=== PATIENT | female | born 1965 | race American Indian/Alaskan Native ===

== ENCOUNTER 2019-03-08 13:16 | Emergency (ER) | payer MEDICAID ==
[2019-03-08 13:44] VITALS: BP 134/81
[2019-03-08] MEDS ORDERED: TORADOL IM ONE (15:09)
[2019-03-08] MEDS ORDERED: DELTASONE PO ONE (15:10)
--- NOTE | 2019-03-08 15:18 | Emergency Department Report ---
ED Rash HPI - HPI Chief Complaint: Skin Rash Stated Complaint: LFT SPINE NUMB/NERVE PAIN Time Seen by Provider: 03/08/19 15:01 Duration: 1 week Location: Chest, Back Rash Symptoms: Yes Itching, Yes Blistering, Yes Malaise, No Facial Swelling, No Tongue/Oral Swelling, No Breathing Difficulties, No Choking Sensation, No Wheezing/Dyspnea, No Peeling, No Fever, No Lightheaded, No Myalgias Severity: mild Other History: Mrs. Moura is a 53-year-old female 1 week of left flank pain just under her breast and radiates around her back. She has blister which occurred recently. Did have chickenpox as a child. ED Review of Systems ROS: Stated complaint: LFT SPINE NUMB/NERVE PAIN Other details as noted in HPI Constitutional: malaise. denies: fever Respiratory: cough. denies: shortness of breath Gastrointestinal: denies: abdominal pain Skin: rash, lesions ED Past Medical Hx - Past Medical History Previous Medical History?: Yes Additional medical history: Sciatica, spinal stenosis, epilepsy - Surgical History Past Surgical History?: No - Social History Smoking Status: Never Smoker Substance Use Type: None - Medications Home Medications: Home Medications Medication Instructions Recorded Confirmed Last Taken Type Acyclovir [Zovirax Tab] 800 mg PO Q3H 7 Days #35 tablet 03/08/19 Unknown Rx Rash Exam - Exam General: Vital signs noted. No distress. Alert and acting appropriately. HEENT: No Periorbital Edema, No Conjuctival Injection, No Chemosis, No Perioral Edema, No Tongue Edema, No Uvular Edema, No Compromised Airway, No Drooling Lungs: Yes Good Air Exchange (Normal Breath Sounds), No Wheezes, No Ronchi, No Stridor, No Cough, No Labored Respirations, No Retractions, No Use of Accessory Muscles, No Other Abnormal Lung Sounds Heart: Yes Regular, No Murmur Skin: Yes Maculopapular Rash (left lower rib cage) Other: Positive: Abdomen Normal, Neurologic Normal, Musculoskeletal Normal ED Course Vital Signs 03/08/19 13:41 Temperature 98.4 F Pulse Rate 111 H Respiratory 18 Rate Blood Pressure 134/81 ED Medical Decision Making - Medical Decision Making Herpes zoster, shingles: Prescription for prednisone and acyclovir provided. Avoided opioid medication with history of previous drug dependence. Critical care attestation.: If time is entered above; I have spent that time in minutes in the direct care of this critically ill patient, excluding procedure time. ED Disposition Clinical Impression: Shingles Disposition: DC- TO HOME OR SELFCARE Is pt being admited?: No Does the pt Need Aspirin: No Condition: Stable Instructions: Herpes Zoster (ED) Prescriptions: Acyclovir [Zovirax Tab] 800 mg PO Q3H 7 Days #35 tablet Referrals: SOFYA STONE MD [Primary Care Provider] - 3-5 Days
== END 2019-03-08 15:36 | disposition home or self-care (01) ==
LOC: ED 13:16
DX: B02.9 Zoster without complications (principal)
CPT/HCPCS: 96372; 99282; J1885; J7512

== ENCOUNTER 2019-04-30 08:55 | Emergency (ER) | payer MEDICAID ==
[2019-04-30 09:03] VITALS: BP 149/98
[2019-04-30] MEDS ORDERED: DELTASONE PO ONE (09:25)
[2019-04-30] MEDS ORDERED: PROVENTIL IH ONE (09:26)
--- NOTE | 2019-04-30 09:38 | Emergency Department Report ---
ED Asthma HPI - General Chief Complaint: Dyspnea/Respdistress Stated Complaint: AZEEM Time Seen by Provider: 04/30/19 09:09 Source: patient Mode of arrival: Ambulatory Limitations: No Limitations - History of Present Illness Initial Comments: 53-year-old -[place] female complains of shortness of breathing. Patient reports she was recently diagnosed with asthma. Patient admits to runny nose but no nasal congestion. She does admit to a cough. Denies any wheezing. Patient reports she's been using her inhaler but has not used her long acting inhaler. Patient reports that she has been exposed to black mold about a year ago. Patient is currently on amlodipine and Benzapril 10 mg over 20 mg, Abilify 15 mg and Zoloft 100 mg. She has no known drug allergies. Onset/Timin -: days(s) Severity: mild Treatments Prior to Arrival: inhaled bronchodilator - Related Data Current Asthma Therapy: inhaled bronchodilator Home Medications Medication Instructions Recorded Confirmed Last Taken Abilify 15 mg PO QDAY 04/30/19 04/30/19 04/30/19 09:37 Amlodipine Besylate/Benazepril 10 mg PO QDAY 04/30/19 04/30/19 04/30/19 [Lotrel 10-20 mg] Fluticasone [Flonase] 70 mcg INHALATION QDAY 04/30/19 04/30/19 04/30/19 09:32 Sertraline [Zoloft] 100 mg PO QDAY 04/30/19 04/30/19 04/30/19 09:35 Previous Rx's Medication Instructions Recorded Last Taken Type Acyclovir [Zovirax Tab] 800 mg PO Q3H 7 Days #35 tablet 03/08/19 Unknown Rx predniSONE [Deltasone] 20 mg PO QDAY #4 tab 04/30/19 Unknown Rx Allergies Allergy/AdvReac Type Severity Reaction Status Date / Time No Known Allergies Allergy Unverified 04/30/19 08:59 ED Review of Systems ROS: Stated complaint: AZEEM Other details as noted in HPI Comment: All other systems reviewed and negative ENT: congestion Respiratory: cough, shortness of breath Endocrine: no symptoms reported Gastrointestinal: denies: abdominal pain, nausea, diarrhea Genitourinary: denies: urgency, dysuria, discharge ED Past Medical Hx - Past Medical History Previous Medical History?: Yes Hx Asthma: Yes Additional medical history: Sciatica, spinal stenosis, epilepsy - Surgical History Past Surgical History?: No - Social History Smoking Status: Former Smoker - Medications Home Medications: Home Medications Medication Instructions Recorded Confirmed Last Taken Type Acyclovir [Zovirax Tab] 800 mg PO Q3H 7 Days #35 tablet 03/08/19 04/30/19 Unknown Rx Abilify 15 mg PO QDAY 04/30/19 04/30/19 04/30/19 09:37 History Amlodipine Besylate/Benazepril 10 mg PO QDAY 04/30/19 04/30/19 04/30/19 History [Lotrel 10-20 mg] Fluticasone [Flonase] 70 mcg INHALATION QDAY 04/30/19 04/30/19 04/30/19 09:32 History Sertraline [Zoloft] 100 mg PO QDAY 04/30/19 04/30/19 04/30/19 09:35 History predniSONE [Deltasone] 20 mg PO QDAY #4 tab 04/30/19 Unknown Rx ED Physical Exam - General Limitations: No Limitations General appearance: alert, in no apparent distress - Head Head exam: Present: atraumatic, normocephalic - Eye Eye exam: Present: normal appearance - ENT ENT exam: Present: mucous membranes moist - Neck Neck exam: Present: normal inspection - Respiratory Respiratory exam: Present: normal lung sounds bilaterally. Absent: respiratory distress - Cardiovascular Cardiovascular Exam: Present: regular rate, normal rhythm. Absent: systolic murmur, diastolic murmur, rubs, gallop - GI/Abdominal GI/Abdominal exam: Present: soft, normal bowel sounds - Extremities Exam Extremities exam: Present: normal inspection - Back Exam Back exam: Present: normal inspection - Neurological Exam Neurological exam: Present: alert, oriented X3 - Psychiatric Psychiatric exam: Present: normal affect, normal mood - Skin Skin exam: Present: warm, dry, intact, normal color. Absent: rash ED Course Vital Signs 04/30/19 04/30/19 04/30/19 09:00 09:50 09:52 Temperature 98.3 F Pulse Rate 92 H Pulse Rate [ 92 H 94 H Anterior Bilateral] Respiratory 21 Rate Respiratory 17 17 Rate [Anterior Bilateral] Blood Pressure 149/98 O2 Sat by Pulse 100 Oximetry ED Medical Decision Making - Radiology Data Radiology results: report reviewed Patient: ARCHANA JEAN MR#: [id number] : 1965 Acct:[id number] Age/Sex: 53 / F ADM Date: 04/30/19 Loc: ED Attending Dr: Ordering Physician: BERNARDO THOMSON Date of Service: 04/30/19 Procedure(s): XR chest routine 2V Accession Number(s): [id number] cc: BERNARDO THOMSON Fluoro Time In Minutes: ROUTINE CHEST, TWO VIEWS: HISTORY: Short of breath. The trachea, heart, mediastinal contour, lung zavaleta and bony thorax are unremarkable. IMPRESSION: Unremarkable chest x-ray. Transcribed By: TTR Dictated By: KASI WATKINS JR, MD Electronically Authenticated By: KASI WATKINS JR, MD Signed Date/Time: 04/30/19 103 DD/ 1039 TD/TT: 04/30/19 1039 - Medical Decision Making 23 year old female comes in for difficulty breathing complaining of shortness of breath. Patient will be given albuterol with normal saline treatment. Patient be given his own 15 mg chest x-ray has been ordered. Chest x-ray is unremarkable. Patient is to continue with her albuterol inhaler as well as use her long acting steroid inhaler. Patient should follow-up with a toilet attendant as well as her primary care provider. Critical care attestation.: If time is entered above; I have spent that time in minutes in the direct care of this critically ill patient, excluding procedure time. ED Disposition Clinical Impression: Shortness of breath Asthma Qualifiers: Asthma severity: mild Asthma persistence: intermittent Asthma complication type: unspecified Qualified Code(s): J45.20 - Mild intermittent asthma, uncomplicated Disposition: DC-01 TO HOME OR SELFCARE Is pt being admited?: No Does the pt Need Aspirin: No Condition: Stable Instructions: Asthma (ED) Additional Instructions: Please use your long-acting inhaler as prescribed twice a day. Usually her rescue inhaler which is albuterol as needed for shortness of breathing and cough. Follow up with her primary care provider as well as a toilet attendant I have listed their information below for your convenience. Take prednisone as prescribed. Prescriptions: predniSONE [Deltasone] 20 mg PO QDAY #4 tab Referrals: JULIAN KHOURY MD [Primary Care Provider] - 3-5 Days
--- NOTE | 2019-04-30 10:44 | XRay Report ---
ROUTINE CHEST, TWO VIEWS: HISTORY: Short of breath. The trachea, heart, mediastinal contour, lung zavaleta and bony thorax are unremarkable. IMPRESSION: Unremarkable chest x-ray.
== END 2019-04-30 10:59 | disposition home or self-care (01) ==
LOC: ED 08:55
DX: J45.909 Unspecified asthma, uncomplicated (principal); G40.909 Epilepsy, unspecified, not intractable, without status epilepticus; Z87.891 Personal history of nicotine dependence
CPT/HCPCS: 71046; 94640; 99283; J7512

== ENCOUNTER 2019-11-16 08:10 | Inpatient (IN) | payer MEDICAID ==
[2019-11-16] MEDS ORDERED: ASPIRIN 325 MG TAB PO ONE (08:19)
--- NOTE | 2019-11-16 08:46 | XRay Report ---
CHEST 1 VIEW INDICATION / CLINICAL INFORMATION: Chest Pain. COMPARISON: 04/30/2019 FINDINGS: SUPPORT DEVICES: None. HEART / MEDIASTINUM: No significant abnormality. LUNGS / PLEURA: No significant pulmonary or pleural abnormality.. No pneumothorax. ADDITIONAL FINDINGS: No significant additional findings. IMPRESSION: 1. No acute findings. Signer Name: Mitch Brown MD Signed: 11/16/2019 8:42 AM Workstation Name: [id number]
[2019-11-16 08:56] LABS: Basophils # (Auto) 0.1 K/mm3 (0.0-0.1); Basophils % (Auto) 0.6 % (0.0-1.8); Eosinophils # (Auto) 0.4 K/mm3 (0.0-0.4); Eosinophils % (Auto) 4.3 % (0.0-4.3); Hematocrit 36.8 % (30.3-42.9); Hemoglobin 12.1 gm/dl (10.1-14.3); Lymphocytes # (Auto) 2.9 K/mm3 (1.2-5.4); Mean Corpuscular HGB Conc 33 % (30-34); Mean Corpuscular Volume 91 fl (79-97); Monocytes # (Auto) 0.7 K/mm3 (0.0-0.8); Monocytes % (Auto) 7.9 % (0.0-7.3); Platelet Count 293 K/mm3 (140-440); Red Blood Count 4.07 M/mm3 (3.65-5.03); Red Cell Distribution Width 15.6 % (13.2-15.2)
[2019-11-16 09:11] LABS: BUN/Creatinine Ratio 18; Blood Urea Nitrogen 14 mg/dL (7-17)
[2019-11-16 09:12] LABS: Hemolysis Index 10
--- NOTE | 2019-11-16 09:29 | Emergency Department Report ---
ED Chest Pain HPI - General Chief Complaint: Chest Pain Stated Complaint: PRESSURE ON CHEST Time Seen by Provider: 11/16/19 09:26 Source: patient Mode of arrival: Ambulatory Limitations: No Limitations - History of Present Illness Initial Comments: 33-year-old female states that she's had "chest congestion for the last 2 months. She states that she is a regular patient of [facility] [place]. She states that she has had an echocardiogram before to evaluate the presence of what I believe is a pre-existing bundle branch block. She is otherwise a poor hist orian. She does not think that she has had a stress test. She's never been admitted to the hospital for evaluation of any chest related symptoms. In addition to the "congestion", she complains of chest pain. She says the chest pain is inframammary nonradiating chest pain described as a squeezing on both sides sometimes involving the back. Sometimes it changes with her physician. Since being worse when she lays down. She does not correlate this with exertion. She states he's had this since Tuesday intermittently lasting sometimes longer than 10 minutes. MD Complaint: chest pain -: Gradual Onset: during rest Pain Location: other (anterior chest) Severity: moderate Quality: pressure Consistency: intermittent Improves With: nothing Worsens With: nothing re: dyspnea ("congestion") Treatments Prior to Arrival: other (MDI inhaler) - Related Data On Oral Contraceptives: No Home Medications Medication Instructions Recorded Confirmed Last Taken Abilify 15 mg PO QDAY 04/30/19 04/30/19 04/30/19 09:37 Amlodipine Besylate/Benazepril 10 mg PO QDAY 04/30/19 04/30/19 04/30/19 [Lotrel 10-20 mg] Fluticasone [Flonase] 70 mcg INHALATION QDAY 04/30/19 04/30/19 04/30/19 09:32 Sertraline [Zoloft] 100 mg PO QDAY 04/30/19 04/30/19 04/30/19 09:35 Previous Rx's Medication Instructions Recorded Last Taken Type Acyclovir [Zovirax Tab] 800 mg PO Q3H 7 Days #35 tablet 03/08/19 Unknown Rx predniSONE [Deltasone] 20 mg PO QDAY #4 tab 04/30/19 Unknown Rx Allergies Allergy/AdvReac Type Severity Reaction Status Date / Time No Known Allergies Allergy Verified 11/16/19 09:27 Heart Score - HEART Score History: Moderately suspicious EKG: Non-specific Age: 45-65 Risk factors: 1-2 risk factors Troponin: < normal limit HEART Score: 4 - Critical Actions Critical Actions: 4-6 pts:12-16.6% risk of adverse cardiac event. Should be admitted ED Review of Systems ROS: Stated complaint: PRESSURE ON CHEST Other details as noted in HPI Constitutional: other (dizziness). denies: chills, fever Eyes: denies: eye pain, eye discharge, vision change ENT: denies: ear pain, throat pain Respiratory: shortness of breath, wheezing. denies: cough Cardiovascular: chest pain. denies: palpitations Endocrine: no symptoms reported Gastrointestinal: denies: abdominal pain, nausea, diarrhea Genitourinary: denies: urgency, dysuria, discharge Musculoskeletal: denies: back pain, joint swelling, arthralgia Skin: denies: rash, lesions Neurological: denies: headache, weakness, paresthesias Psychiatric: denies: anxiety, depression Hematological/Lymphatic: denies: easy bleeding, easy bruising ED Past Medical Hx - Past Medical History Previous Medical History?: Yes Hx Hypertension: Yes Hx Psychiatric Treatment: Yes (I presume schizophrenia as patient is on Abilify) Hx Asthma: Yes Additional medical history: Sciatica, spinal stenosis, epilepsy - Surgical History Past Surgical History?: No - Social History Smoking Status: Former Smoker Substance Use Type: None - Medications Home Medications: Home Medications Medication Instructions Recorded Confirmed Last Taken Type Acyclovir [Zovirax Tab] 800 mg PO Q3H 7 Days #35 tablet 03/08/19 04/30/19 Unknown Rx Abilify 15 mg PO QDAY 04/30/19 04/30/19 04/30/19 09:37 History Amlodipine Besylate/Benazepril 10 mg PO QDAY 04/30/19 04/30/19 04/30/19 History [Lotrel 10-20 mg] Fluticasone [Flonase] 70 mcg INHALATION QDAY 04/30/19 04/30/19 04/30/19 09:32 History Sertraline [Zoloft] 100 mg PO QDAY 04/30/19 04/30/19 04/30/19 09:35 History predniSONE [Deltasone] 20 mg PO QDAY #4 tab 04/30/19 Unknown Rx ED Physical Exam - General Limitations: No Limitations General appearance: obese - Head Head exam: Present: atraumatic, normocephalic - Eye Eye exam: Present: normal appearance. Absent: scleral icterus - ENT ENT exam: Present: mucous membranes moist - Neck Neck exam: Present: normal inspection - Respiratory Respiratory exam: Present: normal lung sounds bilaterally. Absent: respiratory distress - Cardiovascular Cardiovascular Exam: Present: regular rate, normal rhythm. Absent: systolic murmur, diastolic murmur, rubs, gallop - GI/Abdominal GI/Abdominal exam: Present: soft, normal bowel sounds. Absent: distended, tenderness, guarding, rebound - Extremities Exam Extremities exam: Present: normal inspection, normal capillary refill. Absent: pedal edema, joint swelling, calf tenderness - Back Exam Back exam: Present: normal inspection - Neurological Exam Neurological exam: Present: alert, oriented X3, CN II-XII intact. Absent: motor sensory deficit - Psychiatric Psychiatric exam: Present: normal affect, normal mood - Skin Skin exam: Present: warm, dry, intact, normal color. Absent: rash ED Course Vital Signs 11/16/19 08:55 Temperature 98.4 F Pulse Rate 92 H Respiratory 25 H Rate Blood Pressure 141/89 [Left] O2 Sat by Pulse 97 Oximetry - Reevaluation(s) Reevaluation #1: Will admit to the hospitalist service for further care and evaluation. 11/16/19 09:53 PARI score - Pari Score Age > 65: (0) No Aspirin use within the Past 7 Days: (0) No 3 or more CAD Risk Factors: (0) No 2 or more Angina events in past 24 hrs: (0) No Known CAD with more than 50% Stenosis: (0) No Elevated Cardiac Markers: (0) No ST Deviation Greater than 0.5mm: (0) No PARI Score: 0 ED Medical Decision Making - Lab Data Result diagrams: 11/16/19 08:40 11/16/19 08:40 Laboratory Results - last 24 hr 11/16/19 11/16/19 08:40 08:40 WBC 9.1 RBC 4.07 Hgb 12.1 Hct 36.8 MCV 91 MCH 30 MCHC 33 RDW 15.6 H Plt Count 293 Lymph % (Auto) 32.0 Kings % (Auto) 7.9 H Eos % (Auto) 4.3 Baso % (Auto) 0.6 Lymph # 2.9 Kings # 0.7 Eos # 0.4 Baso # 0.1 Seg Neutrophils % 55.2 Seg Neutrophils # 5.0 Sodium 141 Potassium 3.8 Chloride 105.3 Carbon Dioxide 23 Anion Gap 17 BUN 14 Creatinine 0.8 Estimated GFR > 60 BUN/Creatinine Ratio 18 Glucose 118 H Calcium 9.0 Troponin T < 0.010 - EKG Data -: EKG Interpreted by Me EKG shows normal: sinus rhythm Rate: normal (99 borderline tachycardia) - EKG Data Interpretation: nonspecific ST-T wave lyla, other (bifascicular block (RBBB and LAFB)) - Radiology Data Radiology results: report reviewed (no acute finding), image reviewed Critical care attestation.: If time is entered above; I have spent that time in minutes in the direct care of this critically ill patient, excluding procedure time. ED Disposition Clinical Impression: Bifascicular block Chest pain Qualifiers: Chest pain type: unspecified Qualified Code(s): R07.9 - Chest pain, unspecified Disposition: -09 OP ADMIT IP TO THIS HOSP Is pt being admited?: Yes Does the pt Need Aspirin: Yes Condition: Stable Instructions: Chest Pain (ED) Time of Disposition: 09:54
[2019-11-16] MEDS ORDERED: ONDANSETRON 4 MG/2 ML INJ IV PRN (10:59)
[2019-11-16] MEDS ORDERED: ACETAMINOPHEN 325 MG TAB PO PRN (10:59)
[2019-11-16] MEDS ORDERED: amLODIPine 10 MG TAB PO ONE (12:00)
[2019-11-16] MEDS ORDERED: SERTRALINE 50 MG TAB PO ONE (12:08)
[2019-11-16] MEDS ORDERED: amLODIPine 10 MG TAB ONE (12:30)
[2019-11-16] MEDS ORDERED: SERTRALINE 50 MG TAB ONE (12:30)
--- NOTE | 2019-11-16 12:36 | History and Physical Report ---
History of Present Illness Date of examination: 11/16/19 Date of admission: 11/16/19 09:57 Chief complaint: Shortness of breath for 5-6 days Chest pain and congestion for 2 months History of present illness: Zeny Zavala is a 53-year-old female with history of asthma, depression and hypertension and lower back pain presents to the ED with complaints of shortness of breath for the past 5-6 days and also chest pressure and congestion for the past 2 months. Patient is a poor historian. She complains of chest pressure radiating to the back and neck, it's nonexertional, denies any dizziness, sweating, nausea or vomiting or loss of consciousness. Complains of exertional shortness of breath for the past 5-6 days. She denies any fever/chills/nausea or abdominal pain or heartburn. She denies any weight loss or dysuria. Patient is physically active, and denies any exertional chest pain. An EKG was done which showed a right bundle branch block and left anterior fascicular block. Patient is being admitted for further evaluation of her atypical chest pain Past History Past Medical History: hypertension, other (asthma and depression) Past Surgical History: No surgical history Social history: no significant social history Family history: no significant family history Medications and Allergies Allergies Allergy/AdvReac Type Severity Reaction Status Date / Time No Known Allergies Allergy Verified 11/16/19 09:27 Home Medications Medication Instructions Recorded Confirmed Last Taken Type Acyclovir [Zovirax Tab] 800 mg PO Q3H 7 Days #35 tablet 03/08/19 04/30/19 Unknown Rx Abilify 15 mg PO QDAY 04/30/19 04/30/19 04/30/19 09:37 History Amlodipine Besylate/Benazepril 10 mg PO QDAY 04/30/19 04/30/19 04/30/19 History [Lotrel 10-20 mg] Fluticasone [Flonase] 70 mcg INHALATION QDAY 04/30/19 04/30/19 04/30/19 09:32 History Sertraline [Zoloft] 100 mg PO QDAY 04/30/19 04/30/19 04/30/19 09:35 History predniSONE [Deltasone] 20 mg PO QDAY #4 tab 04/30/19 Unknown Rx Active Meds: Active Medications Acetaminophen (Tylenol) 650 mg PO Q4H PRN PRN Reason: Pain MILD(1-3)/Fever >100.5/LANDRUM Albuterol/Ipratropium (Duoneb *Not For Prn Use*) 1 ampul IH QIDRT [facility] Arformoterol Tartrate (Brovana Nebu) 15 mcg IH Q12HRT [facility] Budesonide (Pulmicort) 0.5 mg IH Q12HRT [facility] Famotidine (Pepcid) 20 mg PO BID [place] Sodium Chloride (Nacl 0.45% 1000 Ml) 1,000 mls @ 75 mls/hr IV DIRECT [place] Ondansetron HCl (Zofran) 4 mg IV Q8H PRN PRN Reason: Nausea And Vomiting Oxycodone/Acetaminophen (Percocet 5/325) 1 tab PO Q6H PRN PRN Reason: Pain, Moderate (4-6) Prednisone (Deltasone) 40 mg PO DAILY [place] Sodium Chloride (Sodium Chloride Flush Syringe 10 Ml) 10 ml IV BID [facility] Sodium Chloride (Sodium Chloride Flush Syringe 10 Ml) 10 ml IV PRN PRN PRN Reason: LINE FLUSH Review of Systems All systems: negative (13 point review of systems is unremarkable except as stated above in the history of present illness) Exam - Constitutional Vitals: Temp Pulse Resp BP Pulse Ox 98.4 F 92 H 25 H 141/89 97 11/16/19 08:55 11/16/19 08:55 11/16/19 08:55 11/16/19 08:55 11/16/19 08:55 General appearance: Present: no acute distress, well-nourished, obese - EENT Eyes: Present: PERRL, EOM intact ENT: hearing intact, clear oral mucosa - Neck Neck: Present: supple, normal ROM - Respiratory Respiratory effort: normal Respiratory: bilateral: rhonchi (bilateral expiratory rhonchi) - Cardiovascular Rhythm: regular Heart Sounds: Present: S1 & S2 - Extremities Extremities: No edema Peripheral Pulses: within normal limits - Abdominal General gastrointestinal: Present: soft, non-tender. Absent: hepatomegaly, splenomegaly Female genitourinary: Present: deferred - Rectal Rectal Exam: deferred - Integumentary Integumentary: Present: clear - Musculoskeletal Musculoskeletal: strength equal bilaterally - Psychiatric Psychiatric: appropriate mood/affect - Neurologic Neurologic: CNII-XII intact, no focal deficits Results - Labs CBC & Chem 7: 11/16/19 08:40 11/16/19 08:40 Labs: Abnormal lab results 11/16/19 11/16/19 Range/Units 08:40 08:40 RDW 15.6 H (13.2-15.2) % Dolores % (Auto) 7.9 H (0.0-7.3) % Glucose 118 H (65-100) mg/dL Assessment and Plan - Patient Problems (1) Atypical chest pain Current Visit: Yes Status: Acute Plan to address problem: We will admit the patient to medical floor on observation status Telemetry monitoring First set of troponin is negative Serial troponin levels Check echocardiogram to assess LV function EKG reviewed Cardiology consulted (2) Hypertension Current Visit: Yes Status: Chronic Qualifiers: Hypertension type: essential hypertension Qualified Code(s): I10 - Essential (primary) hypertension Plan to address problem: Continue home medications (3) Depression Current Visit: Yes Status: Chronic Qualifiers: Depression Type: major depressive disorder Major depression episode severity: moderate Plan to address problem: Continue Zoloft (4) Mild persistent chronic asthma without complication Current Visit: Yes Status: Acute Plan to address problem: We will start the patient on neb treatments with DuoNeb solution, Pulmicort and Brovana solutions and oral steroids (5) Bifascicular block Current Visit: Yes Status: Chronic Plan to address problem: EKG reviewed Await cardiology evaluation
[2019-11-16] MEDS: BUDESONIDE 0.5 MG/2 ML NEBU IH SCH ×2 (14:05→19:32)
[2019-11-16] MEDS: IPRATROPIUM/ALBUTEROL SULFATE 3 ML AMPUL.NEB IH SCH ×3 (14:05→22:28)
[2019-11-16] MEDS: predniSONE 20 MG TAB PO SCH (14:45)
[2019-11-16] MEDS: SODIUM CHLORIDE 0.45% 1000 ML 1,000 ML IV SCH (14:46)
--- NOTE | 2019-11-16 14:58 | Consultation ---
History of Present Illness Consult date: 11/16/19 Requesting physician: PONCHO JACINTO Consult reason: chest pain History of present illness: The pt is a 53-year-old female with a past medical history of HTN, asthma, depression, former tobacco use, former heavy ETOH use (sober for 4 years), obesity. She is previously unknown to our practice. She presented with c/o prog ressively worsening SOB, NOEL and wheezing for the past 1 month. Yesterday, she developed chest pain and thus she decided to seek medical attention. She describes her chest pain as an intermittent squeezing pain around her thorax - feels "like a rubber band is wrapped around the ribcage". The pain is aggravated by deep breathing and coughing. She denies any palpitations, n/v, diaphoresis, dizziness or syncope. She denies any known prior cardiac issues. Past History Past Medical History: hypertension, other (asthma and depression) Past Surgical History: No surgical history Social history: no significant social history Family history: no significant family history Medications and Allergies Allergies Allergy/AdvReac Type Severity Reaction Status Date / Time No Known Allergies Allergy Verified 11/16/19 09:27 Home Medications Medication Instructions Recorded Confirmed Last Taken Type Amlodipine Besylate/Benazepril 10 mg PO QDAY 04/30/19 11/16/19 04/30/19 History [Lotrel 10-20 mg] Fluticasone [Flonase] 70 mcg INHALATION QDAY 04/30/19 11/16/19 04/30/19 09:32 History Sertraline [Zoloft] 100 mg PO QDAY 04/30/19 11/16/19 04/30/19 09:35 History Active Meds: Active Medications Acetaminophen (Tylenol) 650 mg PO Q4H PRN PRN Reason: Pain MILD(1-3)/Fever >100.5/LANDRUM Albuterol/Ipratropium (Duoneb *Not For Prn Use*) 1 ampul IH QIDRT [facility] [place] Last Admin: 11/16/19 14:05 Dose: 1 ampul Documented by: Arformoterol Tartrate (Brovana Nebu) 15 mcg IH Q12HRT [facility] [place] Budesonide (Pulmicort) 0.5 mg IH Q12HRT [facility] [place] Last Admin: 11/16/19 14:05 Dose: 0.5 mg Documented by: Famotidine (Pepcid) 20 mg PO BID [facility] [place] Sodium Chloride (Nacl 0.45% 1000 Ml) 1,000 mls @ 75 mls/hr IV DIRECT [facility] [place] Last Admin: 11/16/19 14:46 Dose: 75 mls/hr Documented by: Ondansetron HCl (Zofran) 4 mg IV Q8H PRN PRN Reason: Nausea And Vomiting Oxycodone/Acetaminophen (Percocet 5/325) 1 tab PO Q6H PRN PRN Reason: Pain, Moderate (4-6) Prednisone (Deltasone) 40 mg PO DAILY [facility] [place] Last Admin: 11/16/19 14:45 Dose: 40 mg Documented by: Sodium Chloride (Sodium Chloride Flush Syringe 10 Ml) 10 ml IV BID [facility] [place] Sodium Chloride (Sodium Chloride Flush Syringe 10 Ml) 10 ml IV PRN PRN PRN Reason: LINE FLUSH Review of Systems Constitutional: no weight loss, no weight gain, no fever, no chills, no sweats Ears, nose, mouth and throat: no ear pain, no nose pain, no sinus pressure, no sinus pain Cardiovascular: chest pain, shortness of breath, dyspnea on exertion, high blood pressure, decreased exercise tolerance, no orthopnea, no palpitations, no rapid/irregular heart beat, no edema, no syncope, no lightheadedness, no leg edema Respiratory: cough, shortness of breath, dyspnea on exertion, wheezing, pain on inspiration Gastrointestinal: no abdominal pain, no nausea, no vomiting, no diarrhea, no constipation, no change in bowel habits Genitourinary Female: no pelvic pain, no flank pain, no dysuria, no urinary frequency, no urgency Musculoskeletal: no neck stiffness, no neck pain, no shooting arm pain, no arm numbness/tingling, no low back pain, no shooting leg pain Integumentary: no rash, no pruritis, no redness, no sores, no wounds Neurological: no head injury, no paralysis, no weakness, no parathesias, no numbness, no tingling, no seizures, no syncope Psychiatric: no anxiety Endocrine: no cold intolerance, no heat intolerance Hematologic/Lymphatic: no easy bruising, no easy bleeding Allergic/Immunologic: no urticaria, no wheezing Physical Examination Last Vital Signs Temp 98.1 F 11/16/19 14:02 Pulse 77 11/16/19 14:09 Resp 14 11/16/19 14:09 BP 121/69 11/16/19 14:02 Pulse Ox 97 11/16/19 14:02 General appearance: no acute distress, other (SOB) HEENT: Positive: PERRL, Normocephaly, Mucus Membranes Moist Neck: Positive: neck supple, trachea midline Cardiac: Positive: Reg Rate and Rhythm, S1/S2 Lungs: Positive: Decreased Breath Sounds, Wheezes Neuro: Positive: Grossly Intact Abdomen: Negative: Tender Skin: Negative: Rash Musculoskeletal: No Pain Extremities: Absent: edema Results 11/16/19 08:40 11/16/19 08:40 CBC 11/16/19 Range/Units 08:40 WBC 9.1 (4.5-11.0) K/mm3 RBC 4.07 (3.65-5.03) M/mm3 Hgb 12.1 (10.1-14.3) gm/dl Hct 36.8 (30.3-42.9) % Plt Count 293 (140-440) K/mm3 Lymph # 2.9 (1.2-5.4) K/mm3 Cole # 0.7 (0.0-0.8) K/mm3 Eos # 0.4 (0.0-0.4) K/mm3 Baso # 0.1 (0.0-0.1) K/mm3 Comprehensive Metabolic Panel 11/16/19 Range/Units 08:40 Sodium 141 (137-145) mmol/L Potassium 3.8 (3.6-5.0) mmol/L Chloride 105.3 (98-107) mmol/L Carbon Dioxide 23 (22-30) mmol/L BUN 14 (7-17) mg/dL Creatinine 0.8 (0.7-1.2) mg/dL Glucose 118 H (65-100) mg/dL Calcium 9.0 (8.4-10.2) mg/dL - Imaging and Cardiology Echo: pending EKG: report reviewed, image reviewed EKG interpretations - Telemetry EKG Rhythm: Sinus Rhythm - EKG Sinus rhythms and dysrhythmias: sinus rhythm Assessment and Plan Chest pain appears pleuritic in etiology. ECG with no acute ischemic changes and Dane negative for AMI x 1 set. Obtain echo. Obtain second set of Dane, f/u ECG in AM and plan for lexiscan MPI stress test in AM pending respiratory status will permit. NPO after MN. The patient has been seen in conjunction with Dr. Javier who agrees with the assessment and plan of care. - Patient Problems (1) Chest pain Current Visit: Yes Status: Acute Qualifiers: Chest pain type: unspecified Qualified Code(s): R07.9 - Chest pain, unspecified (2) Asthma exacerbation Current Visit: Yes Status: Acute (3) Hypertension Current Visit: Yes Status: Chronic Qualifiers: Hypertension type: essential hypertension Qualified Code(s): I10 - Essential (primary) hypertension (4) Depression Current Visit: Yes Status: Chronic Qualifiers: Depression Type: major depressive disorder Major depression episode severity: moderate (5) Obesity Current Visit: Yes Status: Chronic (6) RBBB Current Visit: Yes Status: Chronic
[2019-11-16] MEDS: oxyCODONE /ACETAMINOPHEN 5-325MG TAB PO PRN (18:13)
[2019-11-16] MEDS: ARFORMOTEROL 15 MCG/2 ML NEBU IH SCH (19:32)
[2019-11-16] MEDS: FAMOTIDINE 20 MG TAB PO SCH (22:29)
[2019-11-17] MEDS: SODIUM CHLORIDE 0.45% 1000 ML 1,000 ML IV SCH (03:32)
[2019-11-17] MEDS: ARFORMOTEROL 15 MCG/2 ML NEBU IH SCH (07:44)
[2019-11-17] MEDS: BUDESONIDE 0.5 MG/2 ML NEBU IH SCH (07:44)
[2019-11-17] MEDS ORDERED: REGADENOSON 0.4 MG/5 ML INJ IV ONE ×2 (07:58→08:05)
--- NOTE | 2019-11-17 09:38 | Event Note ---
Date: 11/17/19 no ischemic cp. having episodes of left lateral sharp cp at rest that is fleeting vss/morbidly obese chest clear cor rrr abd soft trop neg imp: atypical cp, hx htn. former smoker plan: stress mpi as planned
[2019-11-17 09:54] VITALS: BP 149/93
[2019-11-17] MEDS: oxyCODONE /ACETAMINOPHEN 5-325MG TAB PO PRN (10:33)
[2019-11-17] MEDS ORDERED: oxyCODONE /ACETAMINOPHEN 5-325MG TAB ONE (10:33)
[2019-11-17] MEDS: IPRATROPIUM/ALBUTEROL SULFATE 3 ML AMPUL.NEB IH SCH ×2 (11:07→12:38)
--- NOTE | 2019-11-17 11:38 | Event Note ---
Date: 11/17/19 lexiscan stress. lv ef 70%. no ischemia or necrosis
[2019-11-17] MEDS: predniSONE 20 MG TAB PO SCH (11:42)
[2019-11-17] MEDS: FAMOTIDINE 20 MG TAB PO SCH (11:42)
--- NOTE | 2019-11-17 11:51 | Treadmill Report ---
NUCLEAR CARDIAC IMAGING REPORT INDICATION FOR PROCEDURE: Chest pain. Informed consent was obtained. Vasodilator stress was achieved with the intravenous administration of 0.4 mg of Lexiscan per protocol. Nuclear cardiac imaging was performed following the intravenous administration of technetium-99m Myoview per protocol. Gated SPECT imaging demonstrates a post-stress left ventricular ejection fraction of 70% with normal wall motion. Myocardial perfusion imaging demonstrates no significant cavity change between stress and rest. No significant stress induced perfusion defects are seen. Nuclear cardiac imaging demonstrates grossly normal post-stress left ventricular systolic function with no significant evidence of myocardial ischemia or necrosis. JOB# [id number] ANGELES/NTS
--- NOTE | 2019-11-17 13:20 | Discharge Summary ---
Providers - Providers Date of Admission: 11/16/19 09:57 Date of discharge: 11/17/19 Attending physician: PONCHO JACINTO 11/16/19 10:59 Consult to Physician [CONS] Urgent Comment: Consulting Provider: NATALYA SCHULTE Physician Instructions: Reason For Exam: chest pain and sob Primary care physician: [facility] Hospitalization Reason for admission: Atypical chest pain Condition: Stable Pertinent studies: Echocardiogram Procedures: Nuclear medicine MPI stress test Hospital course: Patient was admitted for atypical chest pain [place] was ruled out with serial troponin levels Cardiology consult was obtained She underwent nuclear medicine stress thallium this morning and it was reported as normal EF 70% Patient denied any chest pain on the day of discharge Patient is medically stable for discharge Follow-up with her primary care physician Disposition: TO HOME OR SELFCARE Time spent for discharge: 34 min - Discharge Diagnoses (1) Atypical chest pain Status: Acute Comment: Resolved (2) Hypertension Status: Chronic Qualifiers: Hypertension type: essential hypertension Qualified Code(s): I10 - Essential (primary) hypertension (3) Depression Status: Chronic Qualifiers: Depression Type: major depressive disorder Major depression episode severity: moderate (4) Mild persistent chronic asthma without complication Status: Acute (5) Bifascicular block Status: Chronic Core Measure Documentation - Palliative Care Palliative Care/ Comfort Measures: Not Applicable - Core Measures Any of the following diagnoses?: none Exam - Constitutional Vitals: Temp Pulse Resp BP Pulse Ox 98.2 F 85 18 149/93 98 11/17/19 04:24 11/17/19 07:35 11/17/19 07:35 11/17/19 09:38 11/17/19 04:24 General appearance: Present: no acute distress - EENT Eyes: Present: PERRL, EOM intact ENT: hearing intact, clear oral mucosa - Neck Neck: Present: supple, normal ROM - Respiratory Respiratory effort: normal Respiratory: bilateral: CTA - Cardiovascular Rhythm: regular Heart Sounds: Present: S1 & S2 - Extremities Extremities: No edema - Abdominal General gastrointestinal: Present: soft, non-tender - Integumentary Integumentary: Present: clear - Musculoskeletal Musculoskeletal: strength equal bilaterally - Psychiatric Psychiatric: appropriate mood/affect, intact judgment & insight - Neurologic Neurologic: no focal deficits Plan Activity: no restrictions Weight Bearing Status: Full Weight Bearing Diet: regular, low fat, low salt Follow up with: PRIMARY CARE, [Primary Care Provider] - 7 Days
[2019-11-17] MEDS ORDERED: IPRATROPIUM 0.02% NEBU 2.5 ML IH SCH (14:00)
[2019-11-17] MEDS ORDERED: LEVALBUTEROL 0.63 MG/3 ML NEBU IH SCH (14:00)
== END 2019-11-17 15:14 | disposition home or self-care (01) | DRG 202 ==
LOC: ED 08:10 → 4A 09:57 → 3A 11:35
PROVIDERS: ADMIT Internal Medicine; ATTEND Internal Medicine
DX: J45.31 Mild persistent asthma with (acute) exacerbation (principal); I45.2 Bifascicular block; Z68.42 Body mass index [BMI] 45.0-49.9, adult; R07.89 Other chest pain; I10 Essential (primary) hypertension; F32.9 Major depressive disorder, single episode, unspecified; E66.9 Obesity, unspecified; I45.10 Unspecified right bundle-branch block; Z79.899 Other long term (current) drug therapy
CPT/HCPCS: 36415; 71045; 78452; 80048; 84484; 85025; 93005; 93010; 93017; 93306; 94640; G0378; A9502; J2405; J2785; J7030; J7512

== ENCOUNTER 2020-10-04 20:12 | Emergency (ER) | payer MEDICAID ==
[2020-10-04 22:55] LABS: Bacteria,Urine 1+ /HPF (Negative); Bilirubin,Urine NEG (Negative); Blood,Urine SM (Negative); Color,Urine Yellow (Yellow); Protein,Urine <15 mg/dL mg/dL (Negative); Urobilinogen,Urine < 2.0 mg/dL (<2.0)
[2020-10-05] MEDS ORDERED: KETOROLAC 30 MG/1 ML INJ IM ONE (00:49)
[2020-10-05] MEDS ORDERED: dexAMETHasone 20 MG/5 ML VIAL IM ONE (00:49)
--- NOTE | 2020-10-05 00:54 | Emergency Department Report ---
ED General Adult HPI - General Chief complaint: Abdominal Pain Stated complaint: SIDE,HIP,THIGH PAIN Time Seen by Provider: 10/05/20 00:45 Source: patient Mode of arrival: Ambulatory Limitations: No Limitations - History of Present Illness Initial comments: The patient was evaluated in the emergency department for symptoms described in the history of present illness. He/she was evaluated in the context of the global COVID-19 pandemic, which necessitated consideration that the patient might be at risk for infection with the virus that causes COVID-19. Institutional protocols and algorithms that pertain to the evaluation of patients at risk for COVID-19 are in a state of rapid change based on information released by regulatory bodies including the CDC and federal and state organizations. These policies and algorithms were followed during the patient's care in the emergency department. Please note that these policies, procedures and recommendations changed on a rapid basis. 54-year-old -[place] female presents to the emergency room complaining of 2-week history of right lower back pain that radiates to her groin area. Patient reports she has chronic history of back pain. Patient reports that the pain is worse with certain movements.. Patient denies any fever chills no nausea no vomiting no recent falls. Onset/Timin -: week(s) Location: back Radiation: abdomen Severity scale (0 -10): 9 Quality: burning, sharp Consistency: intermittent Worsens with: movement Associated Symptoms: denies other symptoms Treatments Prior to Arrival: none - Related Data Home Medications Medication Instructions Recorded Confirmed Last Taken Amlodipine Besylate/Benazepril 10 mg PO QDAY 04/30/19 11/16/19 04/30/19 [Lotrel 10-20 mg] Fluticasone [Flonase] 70 mcg INHALATION QDAY 04/30/19 11/16/19 04/30/19 09:32 Sertraline [Zoloft] 100 mg PO QDAY 04/30/19 11/16/19 04/30/19 09:35 Previous Rx's Medication Instructions Recorded Last Taken Type Diclofenac Sodium 50 mg PO BID PRN #20 tablet. 10/05/20 Unknown Rx Nitrofurantoin [place]/M-Cryst 100 mg PO Q12HR 10 Days #20 capsule 10/05/20 Unknown Rx [Macrobid CAP] Allergies Allergy/AdvReac Type Severity Reaction Status Date / Time No Known Allergies Allergy Verified 11/16/19 09:27 ED Review of Systems ROS: Stated complaint: SIDE,HIP,THIGH PAIN Other details as noted in HPI Comment: All other systems reviewed and negative ED Past Medical Hx - Past Medical History Previous Medical History?: Yes Hx Hypertension: Yes Hx Kidney Stones: Yes Hx Psychiatric Treatment: Yes Hx Asthma: Yes Additional medical history: Sciatica, spinal stenosis, epilepsy. Obesity - Surgical History Past Surgical History?: No - Social History Smoking Status: Former Smoker Substance Use Type: None - Medications Home Medications: Home Medications Medication Instructions Recorded Confirmed Last Taken Type Amlodipine Besylate/Benazepril 10 mg PO QDAY 04/30/19 11/16/19 04/30/19 History [Lotrel 10-20 mg] Fluticasone [Flonase] 70 mcg INHALATION QDAY 04/30/19 11/16/19 04/30/19 09:32 History Sertraline [Zoloft] 100 mg PO QDAY 04/30/19 11/16/19 04/30/19 09:35 History Diclofenac Sodium 50 mg PO BID PRN #20 tablet.dr 10/05/20 Unknown Rx Nitrofurantoin [place]/M-Cryst 100 mg PO Q12HR 10 Days #20 capsule 10/05/20 Unknown Rx [Macrobid CAP] ED Physical Exam - General Limitations: No Limitations General appearance: alert, obese - Head Head exam: Present: atraumatic, normocephalic - Eye Eye exam: Present: normal appearance - ENT ENT exam: Present: mucous membranes moist - Neck Neck exam: Present: normal inspection, full ROM - Respiratory Respiratory exam: Present: normal lung sounds bilaterally. Absent: chest wall tenderness - Cardiovascular Cardiovascular Exam: Present: regular rate - GI/Abdominal GI/Abdominal exam: Present: soft, tenderness (Suprapubic). Absent: distended - Extremities Exam Extremities exam: Present: normal inspection - Back Exam Back exam: Present: normal inspection, full ROM. Absent: rash noted - Expanded Back Exam Expanded Back exam: Sciatic Notch Tenderness: Right, Negative Straight Leg Raising: Right, Left - Neurological Exam Neurological exam: Present: alert, oriented X3, normal gait - Psychiatric Psychiatric exam: Present: normal affect, normal mood - Skin Skin exam: Present: warm, dry, intact, normal color. Absent: rash ED Course Vital Signs 10/04/20 21:21 Temperature 98.8 F Pulse Rate 98 H Respiratory 18 Rate Blood Pressure 137/82 O2 Sat by Pulse 98 Oximetry ED Medical Decision Making - Medical Decision Making 54-year-old -[place] female presents to the emergency room complaining of 2-week history of right lower back pain that radiates to her groin area. Patient reports she has chronic history of back pain. Patient reports that the pain is worse with certain movements.. Patient denies any fever chills no nausea no vomiting no recent falls. Urinalysis is positive for urinary tract infection. Patient also has right sciatica notch tenderness with tenderness to the buttocks with palpation. Patient will be given a Toradol injection prednisone injection and will be discharged home on Macrobid for urinary tract infection as well as diclofenac's 50 mg twice a day for 10 days. Critical care attestation.: If time is entered above; I have spent that time in minutes in the direct care of this critically ill patient, excluding procedure time. ED Disposition Clinical Impression: Urinary tract infection, Pain of back and right lower extremity Disposition: TO HOME OR SELFCARE Is pt being admited?: No Does the pt Need Aspirin: No Condition: Stable Instructions: Abdominal Pain (ED), Urinary Tract Infection, Adult, [id number] Additional Instructions: Complete antibiotics as prescribed pain medication as needed. Be sure to void after intercourse and increase your water intake by 2 to 3 L daily. Follow-up within [facility] chronic urinary tract infections. Prescriptions: Diclofenac Sodium 50 mg PO BID PRN #20 tablet.dr BAE Reason: Pain , Severe (7-10) Nitrofurantoin [place]/M-Cryst [Macrobid CAP] 100 mg PO Q12HR 10 Days #20 capsule Referrals: PRIMARY [facility] [Primary Care Provider] - 3-5 Days [facility] [Provider Group] - 3-5 Days Forms: Work/School Release Form(ED)
[2020-10-05 01:35] VITALS: BP 130/80
== END 2020-10-05 01:33 | disposition home or self-care (01) ==
LOC: ED 20:12
DX: N39.0 Urinary tract infection, site not specified (principal); M54.5 Low back pain; M79.604 Pain in right leg; I10 Essential (primary) hypertension; J45.909 Unspecified asthma, uncomplicated; Z87.891 Personal history of nicotine dependence; Z87.442 Personal history of urinary calculi; Z79.899 Other long term (current) drug therapy
CPT/HCPCS: 81001; 87086; 96372; 99283; J1100; J1885

== ENCOUNTER 2020-10-21 09:55 | Outpatient (CLI) | payer MEDICAID ==
[2020-10-21 10:37] LABS: Basophils # (Auto) 0.1 K/mm3 (0.0-0.1); Basophils % (Auto) 0.6 % (0.0-1.8); Eosinophils # (Auto) 0.4 K/mm3 (0.0-0.4); Eosinophils % (Auto) 3.9 % (0.0-4.3); Hemoglobin 12.1 gm/dl (10.1-14.3); Lymphocytes # (Auto) 3.4 K/mm3 (1.2-5.4); Lymphocytes % (Auto) 32.9 % (13.4-35.0); Mean Corpuscular HGB Conc 35 % (30-34); Mean Corpuscular Volume 90 fl (79-97); Monocytes # (Auto) 0.9 K/mm3 (0.0-0.8); Monocytes % (Auto) 8.8 % (0.0-7.3); Platelet Count 346 K/mm3 (140-440); Red Blood Count 3.91 M/mm3 (3.65-5.03); Red Cell Distribution Width 16.9 % (13.2-15.2)
[2020-10-21 10:50] LABS: % Iron Saturation 10.75 %; Alanine Aminotransferase 43 units/L (7-56); BUN/Creatinine Ratio 18; Blood Urea Nitrogen 14 mg/dL (7-17); Calcium 9.9 mg/dL (8.4-10.2); Chol/HDL Ratio 3.83 %; HDL Cholesterol 56 mg/dL (40-59); Hemolysis Index 5; Iron 36 ug/dL (37-170); LDL Cholesterol,Direct 135 mg/dL (50-130); Total Iron Binding Capacity 335 mcg/dL (250-450)
[2020-10-24 11:59] LABS: Vitamin D, 25-OH, D2 <4 ng/mL
== END 2020-10-21 09:56 | disposition home or self-care (01) ==
LOC: LAB 09:55
PROVIDERS: ATTEND Surgery
DX: E66.01 Morbid (severe) obesity due to excess calories (principal); Z98.84 Bariatric surgery status
CPT/HCPCS: 36415; 80053; 80061; 82306; 82607; 82728; 83036; 83550; 84425; 84443; 85025

== ENCOUNTER 2020-10-27 08:27 | Outpatient (CLI) | payer MEDICAID ==
--- NOTE | 2020-10-27 10:37 | Fluoroscopy Report ---
UPPER GI HISTORY: FUNCTIONAL DYSPEPSIA. TECHNIQUE: Single and double contrast barium technique utilized to evaluate the esophagus, stomach, and duodenal C-loop. FINDINGS: To begin the exam, swallowing was evaluated in the lateral position under direct fluorosco py. Swallowing was normal. No mucosal irregularity, mass, mass effect, or critical stenosis. There were no abnormal tertiary c ontractions as seen with dysmotility. No gastroesophageal reflux. IMPRESSION: Unremarkable exam. Fluoroscopic time: 2.8 minutes Number of fluoroscopic images: 24 Signer Name: Tono Claudio Jr, MD Signed: 10/27/2020 10:32 AM Workstation Name: [id number]
== END 2020-10-27 08:28 | disposition home or self-care (01) ==
LOC: FLUORO 08:27
PROVIDERS: ATTEND Surgery
DX: K30 Functional dyspepsia (principal)
CPT/HCPCS: 74246

== ENCOUNTER 2020-11-03 08:00 | Outpatient (CLI) | payer MEDICAID | END 2020-11-03 12:00 | disposition home or self-care (01) | LOC: SLR 08:00 | PROVIDERS: ATTEND Surgery | DX: G47.33 Obstructive sleep apnea (adult) (pediatric) (principal) | CPT/HCPCS: 95810 ==

== ENCOUNTER 2020-11-10 11:00 | Outpatient (CLI) | payer MEDICAID | END 2020-11-10 11:01 | disposition home or self-care (01) | LOC: SLR 11:00 | PROVIDERS: ATTEND Surgery | DX: G47.33 Obstructive sleep apnea (adult) (pediatric) (principal); R40.0 Somnolence; E66.9 Obesity, unspecified | CPT/HCPCS: 95811 ==

== ENCOUNTER 2020-12-28 22:31 | Emergency (ER) | payer MEDICAID ==
--- NOTE | 2020-12-28 23:09 | Event Note ---
ED Screening Note Date of service: 12/28/20 Time: 23:08 ED Screening Note: Patient presents with complaints of sudden onset of facial/lip swelling with tingling in her throat upon waking today Patient states possible allergic reaction to Metformin, newly diagnosed diabetes and has taken 2 doses Denies shortness of breath Angioedema noted to face This initial assessment/diagnostic orders/clinical plan/treatment(s) is/are subject to change based on patients health status, clinical progression and re- assessment by fellow clinical providers in the ED. Further treatment and workup at subsequent clinical providers discretion. Patient/guardian urged not to elope from the ED as their condition may be serious if not clinically assessed and managed. Initial orders include: Further eval
[2020-12-28] MEDS ORDERED: FAMOTIDINE 20 MG/2 ML INJ IV ONE (23:22)
[2020-12-28] MEDS ORDERED: methylPREDNISolone Sod Succinate 125 MG/2 ML INJ IV ONE (23:23)
[2020-12-28] MEDS ORDERED: CETIRIZINE 10 MG TAB PO ONE (23:23)
--- NOTE | 2020-12-29 00:33 | Emergency Department Report ---
ED Allergic Reaction HPI - General Chief complaint: Allergic Reaction Stated complaint: ALLERGIC REACTION;LIP SWELLING Time Seen by Provider: 12/28/20 23:07 Source: patient Mode of arrival: Ambulatory Limitations: No Limitations - History of Present Illness Initial Comments: Chief complaint: "It must be my Metformin." HPI: This is a 55-year-old female with history of hypertension diabetes mellitus asthma sciatica epilepsy spinal stenosis who presents with 1 month of diffuse itching redness of skin since beginning Metformin. Today she awakened from a nap with lower lip swelling. No previous history of allergic reaction. She denies difficulty with swallowing. Denies shortness of breath. Denies feeling faint. Denies food allergies. MD Complaint: allergic reaction, facial swelling, other (Diffuse rash of arms for the past month) -: Gradual Exposure: medication Symptoms: rash, lip swelling Severity: mild Treatment Prior to Arrival: none Previous Allergy History: none - Related Data Home Medications Medication Instructions Recorded Confirmed Last Taken Amlodipine Besylate/Benazepril 10 mg PO QDAY 04/30/19 11/16/19 04/30/19 [Lotrel 10-20 mg] Fluticasone [Flonase] 70 mcg INHALATION QDAY 04/30/19 11/16/19 04/30/19 09:32 Sertraline [Zoloft] 100 mg PO QDAY 04/30/19 11/16/19 04/30/19 09:35 Previous Rx's Medication Instructions Recorded Last Taken Type Diclofenac Sodium 50 mg PO BID PRN #20 tablet. 10/05/20 Unknown Rx Nitrofurantoin Lucas/M-Cryst 100 mg PO Q12HR 10 Days #20 capsule 10/05/20 Unknown Rx [Macrobid CAP] EPINEPHrine [Epipen] 0.3 mg IJ ONCE PRN #1 auto.injct 12/29/20 Unknown Rx Prednisone [predniSONE 10 mg 10 mg PO .TAPER #1 tab.ds.pk 12/29/20 Unknown Rx (6-Day Pack, 21 Tabs)] amLODIPine 10 mg PO DAILY #90 tab 12/29/20 Unknown Rx diphenhydrAMINE [Benadryl CAP] 25 mg PO TID 4 Days #12 capsule 12/29/20 Unknown Rx Allergies Allergy/AdvReac Type Severity Reaction Status Date / Time No Known Allergies Allergy Verified 11/16/19 09:27 ED Review of Systems ROS: Stated complaint: ALLERGIC REACTION;LIP SWELLING Other details as noted in HPI Comment: All other systems reviewed and negative Constitutional: denies: fever, malaise Respiratory: denies: cough, shortness of breath Cardiovascular: denies: chest pain Skin: rash ED Past Medical Hx - Past Medical History Previous Medical History?: Yes Hx Hypertension: Yes Hx Kidney Stones: Yes Hx Psychiatric Treatment: Yes Hx Asthma: Yes Additional medical history: Sciatica, spinal stenosis, epilepsy. Obesity - Social History Smoking Status: Never Smoker Substance Use Type: None - Medications Home Medications: Home Medications Medication Instructions Recorded Confirmed Last Taken Type Amlodipine Besylate/Benazepril 10 mg PO QDAY 04/30/19 11/16/19 04/30/19 History [Lotrel 10-20 mg] Fluticasone [Flonase] 70 mcg INHALATION QDAY 04/30/19 11/16/19 04/30/19 09:32 History Sertraline [Zoloft] 100 mg PO QDAY 04/30/19 11/16/19 04/30/19 09:35 History Diclofenac Sodium 50 mg PO BID PRN #20 tablet.dr 10/05/20 Unknown Rx Nitrofurantoin Lucas/M-Cryst 100 mg PO Q12HR 10 Days #20 capsule 10/05/20 Unknown Rx [Macrobid CAP] EPINEPHrine [Epipen] 0.3 mg IJ ONCE PRN #1 auto.injct 12/29/20 Unknown Rx Prednisone [predniSONE 10 mg 10 mg PO .TAPER #1 tab.ds.pk 12/29/20 Unknown Rx (6-Day Pack, 21 Tabs)] amLODIPine 10 mg PO DAILY #90 tab 12/29/20 Unknown Rx diphenhydrAMINE [Benadryl CAP] 25 mg PO TID 4 Days #12 capsule 12/29/20 Unknown Rx ED Physical Exam - General Limitations: No Limitations General appearance: alert, in no apparent distress - Head Head exam: Present: atraumatic, normocephalic, other (Redness involving cheeks lower lip swelling normal tongue size normal soft palate) - Eye Eye exam: Present: normal appearance - ENT ENT exam: Present: mucous membranes moist, other (Lower lip swelling normal tongue size normal voice normal soft palate) - Neck Neck exam: Present: normal inspection, full ROM - Respiratory Respiratory exam: Present: normal lung sounds bilaterally. Absent: respiratory distress, wheezes, rales, stridor - Cardiovascular Cardiovascular Exam: Present: regular rate, normal rhythm, normal heart sounds. Absent: systolic murmur, diastolic murmur, rubs, gallop - GI/Abdominal GI/Abdominal exam: Present: soft, normal bowel sounds. Absent: distended, tenderness, guarding, rebound - Extremities Exam Extremities exam: Present: normal inspection - Neurological Exam Neurological exam: Present: alert, oriented X3 - Psychiatric Psychiatric exam: Present: normal affect, normal mood - Skin Skin exam: Present: warm, erythema (Erythema involving cheeks and arms). Absent: rash ED Course Vital Signs 12/28/20 22:54 Temperature 98.2 F Pulse Rate 107 H Respiratory 14 Rate Blood Pressure 140/85 O2 Sat by Pulse 97 Oximetry ED Medical Decision Making - Medical Decision Making Allergic reaction with pruritus redness face likely due to Metformin. However in the setting of CHRIST inhibitor use, must consider CHRIST inhibitor induced angioedema. Patient stated she has had the redness of the arms for 1 month. I have asked patient to stop both benazepril and Metformin. I have prescribed prednisone famotidine diphenhydramine epinephrine pen. She will follow with her PCP for further instruction. Critical care attestation.: If time is entered above; I have spent that time in minutes in the direct care of this critically ill patient, excluding procedure time. ED Disposition Clinical Impression: Allergic reaction caused by a drug, Angioedema Disposition: DC-01 TO HOME OR SELFCARE Is pt being admited?: No Does the pt Need Aspirin: No Condition: Stable Instructions: Angioedema, [id number], Drug Rash Additional Instructions: Please stop taking your blood pressure medicine. You have been prescribed a new blood pressure medication. Benazepril will cause lip swelling. Please also stop taking Metformin. Prescriptions: amLODIPine 10 mg PO DAILY #90 tab diphenhydrAMINE [Benadryl CAP] 25 mg PO TID 4 Days #12 capsule EPINEPHrine [Epipen] 0.3 mg IJ ONCE PRN #1 auto.injct PRN Reason: Allergic Reaction Prednisone [predniSONE 10 mg (6-Day Pack, 21 Tabs)] 10 mg PO .TAPER #1 tab.ds.pk Referrals: IAN RUFFIN NP [Primary Care Provider] - 3-5 Days
[2020-12-29 00:55] VITALS: BP 113/68
== END 2020-12-29 00:56 | disposition home or self-care (01) ==
LOC: ED 22:31
DX: T78.3XXA Angioneurotic edema, initial encounter (principal); T50.905A Adverse effect of unspecified drugs, medicaments and biological substances, initial encounter; I10 Essential (primary) hypertension; N20.0 Calculus of kidney; J45.909 Unspecified asthma, uncomplicated; Z79.899 Other long term (current) drug therapy
CPT/HCPCS: 82962; 96374; 96375; 99283; J2930

== ENCOUNTER 2021-01-26 08:42 | Outpatient (CLI) | payer MEDICAID ==
--- NOTE | 2021-01-26 11:56 | Treadmill Report ---
This is a treadmill stress test ordered by Dr. Land for preop for bariatric surgery. The patient's baseline heart rate is 89. Baseline blood pressure 136/85. Baseline EKG, sinus rhythm, right bundle branch block. The patient exercised for 2 minutes 30 seconds on Jayesh protocol, achieved a heart rate of 120 beats per minute, which is 70% max predicted heart rate. Peak blood pressure 151/65, had to stop secondary to shortness of breath. SUMMARY: 1. Nondiagnostic treadmill EKG as the patient could not achieve 85% max predicted heart rate. 2. Poor exercise capacity. 3. No exaggerated blood pressure response to exercise. 4. Suggest a Lexiscan nuclear stress test for ischemic evaluation in view of nondiagnostic treadmill EKG. JOB# [id number] CARLIE/DARRIUS
== END 2021-01-26 08:43 | disposition home or self-care (01) ==
LOC: CARD 08:42
PROVIDERS: ATTEND Surgery
DX: E66.01 Morbid (severe) obesity due to excess calories (principal)
CPT/HCPCS: 93005; 93017

== ENCOUNTER 2021-02-03 06:24 | Day surgery (SDC) | payer MEDICAID ==
[~2021-02-03 06:24] MED LIST: SODIUM CHLORIDE 0.9% 1000 ML 1,000 ML IV SCH
--- NOTE | 2021-02-03 07:35 | Anesthesia Consultation ---
Anesthesia Consult and Med Hx Date of service: 02/03/21 - Airway Anesthetic Teeth Evaluation: Good (missing #8) ROM Head & Neck: Adequate Mental/Hyoid Distance: Adequate Mallampati Class: Class II Intubation Access Assessment: Probably Good - Pre-Operative Health Status ASA Pre-Surgery Classification: ASA3 Proposed Anesthetic Plan: MAC - Pulmonary Hx Smoking: Yes (quit 5 yrs ago) Hx Asthma: Yes (1 week ago inhaler ) Hx Respiratory Symptoms: No SOB: Yes COPD: No Home Oxygen Therapy: No Hx Pneumonia: No Hx Sleep Apnea: Yes (does not have cpap) - Cardiovascular System Hx Hypertension: Yes Hx Coronary Artery Disease: No Hx Heart Attack/AMI: No Hx Angina: No Hx Percutaneous Transluminal Coronary Angioplasty (PTCA): No Hx Cardia Arrhythmia: No Hx Pacemaker: No Hx Internal Defibrillator: No Hx Valvular Heart Disease: No Hx Heart Murmur: No Hx Peripheral Vascular Disease: No - Central Nervous System Hx Neuromuscular Disorder: No Hx Seizures: Yes (last seizure 3 yrs ago) CVA: No Hx Back Pain: Yes (spinal stenosis) Hx Psychiatric Problems: Yes (depression) - Gastrointestinal Hx Ulcer: No Hx Gastroesophageal Reflux Disease: No - Endocrine Hx Renal Disease: No Hx End Stage Renal Disease: No Hx Cirrhosis: No Hx Liver Disease: No Hx Insulin Dependent Diabetes: No Hx Non-Insulin Dependent Diabetes: Yes (was on metformin but had an allergic reaction - lip swelling) Hx Thyroid Disease: No Hx Hypothyroidism: No Hx Hyperthyroidism: No - Hematic Hx Anemia: No Hx Sickle Cell Disease: No - Other Systems Hx Alcohol Use: No Hx Substance Use: Yes (quit marijuana 6 years ago) Hx Cancer: No Hx Obesity: Yes
--- NOTE | 2021-02-03 07:41 | Anesthesia Day of Surgery ---
Anesthesia Day of Surgery - Day of Surgery Patient Examined: Yes Patient H&P Reviewed: Yes Patient is NPO: Yes
[2021-02-03] MEDS ORDERED: WATER FOR IRRIG STERILE 250 ML BOTTLE IR ONE (07:50)
[2021-02-03] MEDS ORDERED: WATER FOR IRRIG STERILE 1,000 ML BOTTLE ONE (07:50)
--- NOTE | 2021-02-03 10:18 | Discharge Summary ---
Providers - Providers Date of Admission: 02/03/21 Date of discharge: 02/03/21 Attending physician: EDD CABRREA MD Primary care physician: IAN RUFFIN NP Hospitalization Reason for admission: pre-op egd for bariatric surgery Condition: Good Procedures: egd Hospital course: Pt presented for a pre-op EGD as part of planning for up coming bariatric surgery. Procedure was uneventful and pt recovered well and was discharged to home. Disposition: DC- TO HOME OR SELFCARE Final Discharge Diagnosis (Prints w/discharge instructions): gerd Core Measure Documentation - Palliative Care Palliative Care/ Comfort Measures: Not Applicable - Core Measures Any of the following diagnoses?: none Exam - Physical Exam Narrative exam: unchanged from pre-op Plan Activity: no restrictions Diet: low carbohydrate Follow up with: IAN RUFFIN NP [Primary Care Provider] - 7 Days
--- NOTE | 2021-02-03 10:20 | Operative Report ---
Operative Report Operative Report: DATE: 02/03/21 SURGERY: Upper endoscopy. SURGEON: Rachelle Land M.D. PROCEDURE: EGD with biopsy PRE OP DX: morbid obesity, GERD POST OP DX: morbid obesity, GERD TYPE OF ANESTHESIA: MAC. ESTIMATED BLOOD LOSS: None. COMPLICATIONS: None. SPECIMENS REMOVED: antral biopsy FINDINGS: 1. Small hiatal hernia. 2. gastritis INDICATIONS:INDICATION FOR PROCEDURE: Patient is a 55-year-old female with a long history of morbid obesity. She is planned to have a weight loss procedure and is here for preoperative planning EGD. PROCEDURE DETAILS: After consent was reviewed, patient was taken back to the operating room where patient was placed in the left lateral decubitus position and a bite block was placed in the mouth. After a time-out was called, MAC anesthesia was initiated. I then passed the endoscope into her oropharynx, into her esophagus, visualized the entire esophagus, which was all within normal limits. Z-line was noted to about 36cm from incisors. I then visualized the stomach and the first portion of the duodenum and there were no abnormalities I could clearly visualize except for antral gastritis. A cold forceps biopsy of the antrum was taken and will be sent to pathology to evaluate for H.pylori. I then retroflexed the scope in the stomach and visualized the hiatus and I could see a small hiatal hernia. I then desufflated the stomach and removed the endoscope. Patient had a period of desaturation that required brief termination of procedure. Once O2 saturations were optimized to 100% the procedure was attempted again and completed. She was transferred to recovery room in good and stable condition.
[2021-02-03] MEDS ORDERED: LIDOCAINE MPF (2%) 20 MG/1 ML VIAL 5 ML ONE (10:25)
[2021-02-03] MEDS ORDERED: propofoL 200 MG/20 ML VIAL IV ONE ×2 (10:26→10:33)
[2021-02-03 11:18] VITALS: BP 119/75
--- NOTE | 2021-02-03 11:45 | Post Anesthesia Evaluation ---
- Post Anesthesia Evaluation Patient Participated: Yes Airway Patent: Yes Stable Respiratory Function: Yes Nausea/Vomiting: No Temp > 96.8F: Yes Pain Manageable: Yes Adequeate Hydration: Yes Anesthesia Complications: No
== END 2021-02-03 11:35 | disposition home or self-care (01) ==
LOC: GIO 06:24
PROVIDERS: ATTEND Surgery
DX: K21.9 Gastro-esophageal reflux disease without esophagitis (principal); E66.01 Morbid (severe) obesity due to excess calories; K44.9 Diaphragmatic hernia without obstruction or gangrene; K31.89 Other diseases of stomach and duodenum; K29.70 Gastritis, unspecified, without bleeding; I10 Essential (primary) hypertension; F32.9 Major depressive disorder, single episode, unspecified; I45.10 Unspecified right bundle-branch block; G47.30 Sleep apnea, unspecified; J45.909 Unspecified asthma, uncomplicated; E11.9 Type 2 diabetes mellitus without complications; Z91.040 Latex allergy status; Z88.8 Allergy status to other drugs, medicaments and biological substances; Z68.43 Body mass index [BMI] 50.0-59.9, adult; Z87.442 Personal history of urinary calculi; Z98.890 Other specified postprocedural states
CPT/HCPCS: 43239; 82962; 88305; 88342; J2704; J7030

== ENCOUNTER 2021-02-17 08:19 | Outpatient (CLI) | payer MEDICAID ==
[2021-02-17] MEDS ORDERED: REGADENOSON 0.4 MG/5 ML INJ IV ONE (10:36)
[2021-02-17 14:31] VITALS: BP 132/85
--- NOTE | 2021-02-18 12:05 | Electrocardiograph Report ---
[facility] Test Date: 2021-02-17 Test Time: 10:23:27 Pat Name: ARCHANA JEAN Department: Room: Gender: F Summer Law Clerk: JUAN : 1965 Requested By: EDD CABRERA Order Number: [id number] Reading MD: Soren Landa Measurements Intervals Dillon Rate: 93 P: 43 [place]: 178 QRS: -46 QRSD: 152 T: 23 QT: 413 QTc: 513 Interpretive Statements Sinus rhythm RBBB and LAFB Probable left ventricular hypertrophy No previous ECG available for comparison Electronically Signed On 02-18-2021 12:04:34 EDT by Soren Landa
== END 2021-02-17 08:20 | disposition home or self-care (01) ==
LOC: CATHLABREC 08:19 → CARD 08:19
PROVIDERS: ATTEND Surgery
DX: I45.10 Unspecified right bundle-branch block (principal); E66.01 Morbid (severe) obesity due to excess calories
CPT/HCPCS: 78452; 93005; 93017; A9502; J2785

== ENCOUNTER 2021-06-29 06:05 | Inpatient (IN) | payer MEDICAID ==
--- NOTE | 2021-06-25 15:10 | Anesthesia Consultation ---
Anesthesia Consult and Med Hx Date of service: 06/30/21 - Airway Anesthetic Teeth Evaluation: Chipped (LOOSE front and some missing) ROM Head & Neck: Adequate Mental/Hyoid Distance: Adequate Mallampati Class: Class II Intubation Access Assessment: Good - Pre-Operative Health Status ASA Pre-Surgery Classification: ASA3 Proposed Anesthetic Plan: General - Pulmonary Hx Smoking: Yes (quit 5 yrs ago) Hx Asthma: Yes (Seasonal; stable) Hx Respiratory Symptoms: No (+2FS; states she can walk 2-3 blocks) SOB: Yes COPD: No Hx Pneumonia: No Hx Sleep Apnea: Yes (+CPAP) - Cardiovascular System Hx Hypertension: Yes Hx Coronary Artery Disease: No (Negative cardiac/pulmonary workup. 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; psychogenic) CVA: No Hx Back Pain: Yes (spinal stenosis) Hx Psychiatric Problems: Yes (depression) - Gastrointestinal Hx Ulcer: No Hx Gastroesophageal Reflux Disease: No - Endocrine Hx Renal Disease: Yes (Hx stones) Hx End Stage Renal Disease: No Hx Cirrhosis: No Hx Liver Disease: No Hx Insulin Dependent Diabetes: No Hx Non-Insulin Dependent Diabetes: Yes (was on metformin but had an allergic reaction - lip swelling) Hx Thyroid Disease: No Hx Hypothyroidism: No Hx Hyperthyroidism: No - Hematic Hx Anemia: No Hx Sickle Cell Disease: No - Other Systems Hx Alcohol Use: No Hx Substance Use: Yes (quit marijuana 6 years ago) Hx Cancer: No Hx Obesity: Yes
[2021-06-25 16:54] LABS: Hematocrit 37.5 % (30.3-42.9); Hemoglobin 12.1 gm/dl (10.1-14.3); Mean Corpuscular HGB Conc 32 % (30-34); Mean Corpuscular Volume 90 fl (79-97); Platelet Count 334 K/mm3 (140-440); Red Blood Count 4.19 M/mm3 (3.65-5.03); Red Cell Distribution Width 16.2 % (13.2-15.2)
[2021-06-25 17:15] LABS: Alanine Aminotransferase 20 units/L (7-56); BUN/Creatinine Ratio 26; Blood Urea Nitrogen 21 mg/dL (7-17); Calcium 9.6 mg/dL (8.4-10.2); Hemolysis Index 37
[~2021-06-29 06:05] MED LIST changes: +ENOXAPARIN 40 MG/0.4 ML INJ SUB-Q NR; +GABAPENTIN 500 MG/10 ML ORAL LIQD PO NR; +MIDAZOLAM 2 MG/2 ML INJ IV NR; -SODIUM CHLORIDE 0.9% 1000 ML 1,000 ML IV SCH; +metroNIDAZOLE/NS 500 MG/100 ML 500 MG/100 ML BAG IV NR
[2021-06-29] MEDS ORDERED: SCOPOLAMINE TRANSDERMAL PATCH 72 HR TD ONE (06:34)
[2021-06-29] MEDS ORDERED: MAGNESIUM SULFATE 2 GM/50 ML BAG IV ONE (06:42)
[2021-06-29] MEDS ORDERED: LIDOCAINE (1%) 10 MG/1 ML VIAL 20 ML MDV ONE (06:42)
[2021-06-29] MEDS ORDERED: KETAMINE/STERILE WATER 50 MG/ML SYRINGE ONE (06:43)
[2021-06-29] MEDS ORDERED: ACETAMINOPHEN IV 1,000 MG/100 ML BOTTLE IV NR (07:00)
[2021-06-29] MEDS: LACTATED RINGERS 1,000 ML IV SCH ×2 (07:20→14:10)
--- NOTE | 2021-06-29 07:20 | Anesthesia Day of Surgery ---
Anesthesia Day of Surgery - Day of Surgery Patient Examined: Yes Patient H&P Reviewed: Yes Patient is NPO: Yes
[2021-06-29] MEDS ORDERED: ONDANSETRON 4 MG/2 ML INJ IV PRN ×3 (07:21→11:10)
[2021-06-29] MEDS ORDERED: LIDOCAINE 1%/EPINEPHRINE 1:100,000 VIAL (20 ML) INFILTRATI ONE ×2 (07:27→08:45)
[2021-06-29] MEDS ORDERED: BUPIVACAINE/PF (0.25%) 2.5 MG/ML 30 ML VIAL INFILTRATI ONE ×2 (07:27→08:44)
[2021-06-29] MEDS ORDERED: MIDAZOLAM 2 MG/2 ML INJ ONE (07:43)
--- OUTSIDE RECORDS SUMMARY | 2021-06-29 08:22 | External Medical Summary ---
:1965 Author Organization [facility], [facility] Address [address] [place] [address] Care Team Providers Name Role Phone Shanda Rachelle Unavailable [phone] PROBLEMS Type Condition ICD9-CM URS01-DQ Onset Condition W/U Status Risk SNOM ED Notes Code Code Dates Status Code Problem Spinal M48.061 Active confirmed 21329463 stenosis, lumbar region without neurogenic claudication Problem Unspecified J45.909 Active confirmed 9666254 0 asthma, uncomplicated Problem Essential I10 Active confirmed 21307201 (primary) hypertension Problem Dietary Z71.3 Active confirmed 700931192 counseling and surveillance Problem Type 2 E11.9 Active confirmed 884781736 diabetes mellitus without complications Problem Sleep apnea, G47.30 Active confirmed 9131971 6 unspecified Problem Sleep G47.9 Active confirmed 94925684 disorder, unspecified Problem Morbid E66.01 Active confirmed 267788648 (severe) obesity due to excess calories Problem Functional K30 Active confirmed 6204673 dyspepsia Problem Gastro-esopha K21.9 Active confirmed 477362 005 geal reflux disease without esophagitis ALLERGIES Allergen (clinical drug Drug/Non Drug Allergy Reaction Allergy Type Onset Date Status ingredient) documented on EMR Latex Latex Unknown Drug Allergy Active ENCOUNTERS from 1965 to 2021-06-26 Encounter Location Date Provider Diagnosis [address] Jun, [facility] [address] [facility] [address] IMMUNIZATIONS No Information SOCIAL HISTORY Sex Assigned At : Social History Observation Description Sex Assigned At Unknown REASON FOR REFERRAL from 1965 to 2021-06-26 Diagnosis 1 Morbid (severe) obesity due to excess calories (E66.01) Diagnosis 2 Functional dyspepsia (K30) Diagnosis 3 Essential (primary) hyperten galileo (I10) Diagnosis 4 Spinal stenosis, lumbar bouchra on without neurogenic claudication (M48.061) Diagnosis 5 Sleep disorder, unspecified (G47.9) Diagnosis 6 Unspecified asthma, uncompli cated (J45.909) Diagnosis 7 Type 2 diabetes mellitus wit hout complications (E11.9) Diagnosis 8 Gastro-esophageal reflux dis ease without esophagitis (K21.9) Diagnosis 9 Other asthma (J45.998) Diagnosis 10 Major depressive disorder, s roby episode, unspecified (F32.9) Diagnosis 11 Sleep apnea, unspecified (G4 7.30) Diagnosis 12 Low back pain (M54.5) Diagnosis 13 Allergy, unspecified, sequel a (T78.40XS) Diagnosis 14 Dietary counseling and surve illance (Z71.3) Referral Organization [facility] Referring Provider First Name Rachelle Referring Provider Last Name Shanda Referring Provider Specialty Surgery Referred Provider [facility], - Referral Priority Routine VITAL SIGNS No information MEDICATIONS Medication SIG (Take, Route, Notes Start Date End Date Status Frequency, Duration) Zofran 4 MG 1 tablet ODT Jun, Active Orally every four 2020 hours for 30 day(s) Fluticasone 1 puff Inhalation Active Propionate (Inhal) Twice a day 50 MCG/BLIST NexIUM 40 MG 1 capsule Orally Jun, Active Once a day for 30 2020 day(s) Nitrofurantoin as directed Orally recent Ac tive Macrocrystal 100 MG diagnosis amLODIPine Besylate 1 tablet Orally 1-2 tabs Not-Taking 10 MG Once a day for 30 day(s) Sertraline HCl 100 1 tablet Orally N ot-Taking MG Once a day for 30 day(s) HYDROcodone-Acetamin 15 ml as needed Jun, Jun, Active ophen 7.5-325 Orally every 6 hrs 2020 2020 MG/15ML as needed for 7 days metFORMIN HCl 500 MG 1 tablet with a 500 mg BID Not-Taking meal Orally Once a day for 30 day(s) Dupixent 300 MG/2ML as directed every 14 days A ctive Subcutaneous (instructed pt not to take before surgery) Cetirizine HCl 10 MG 1 tablet Orally 1-2 tabs Active Once a day for 30 day(s) Diclofenac Potassium 1 tablet Orally Not-Taking 50 MG Twice a day for 30 day(s) PROCEDURES No Information RESULTS No Results REASON FOR VISIT No Information MEDICAL (GENERAL) HISTORY Type Description Date Medical History anxiety Medical History back pain - lumbar stenosis Medical History asthma Medical History pre-diabetes Medical History eczema Medical History hx gallstones Medical History htn Medical History hx of kidney stones and uti Surgical History kidney stone removed 2018 Surgical History blephroplasty 2019 Hospitalization History as above Goals Section No Information Health Concerns No Information MEDICAL EQUIPMENT No Information MENTAL STATUS No Information FUNCTIONAL STATUS No Information ASSESSMENTS No Information PLAN OF TREATMENT Medication Medication Name Sig Start Date Stop Date NexIUM 40 MG 1 capsule Orally Once a day for 30 day(s) Jun Zofran 4 MG 1 tablet ODT Orally every four hours for 30 2020 day(s) Referrals Referral Date Details Next Appt Details Provider Name:Rachelle Land, 2021-06-14 6 07:45:00 AM, [address] [facility], [address], [place], [address], [phone] Insurance Providers Payer Name Payer Payer Insured Name Patient Coverage Covera ge End Address Phone Relationship to Start Date Frank e Insured Medicaid [phone] Sally Moura self [id number] [facility] [address]
[2021-06-29] MEDS ORDERED: SODIUM CHLORIDE 0.9% IRRIG SOLN 2000 ML IR ONE (08:45)
[2021-06-29] MEDS ORDERED: SODIUM CHLORIDE 0.9% IRR 1,500 ML BOTTLE IR ONE (08:45)
[2021-06-29] MEDS ORDERED: dexAMETHasone 20 MG/5 ML VIAL ONE (08:49)
[2021-06-29] MEDS ORDERED: ONDANSETRON 4 MG/2 ML INJ ONE (08:49)
[2021-06-29] MEDS ORDERED: LIDOCAINE MPF (2%) 20 MG/1 ML VIAL 5 ML ONE (08:49)
[2021-06-29] MEDS ORDERED: KETOROLAC 30 MG/1 ML INJ ONE (08:50)
[2021-06-29] MEDS ORDERED: ROCURONIUM 50 MG/5 ML INJ IV ONE ×2 (08:50→08:57)
[2021-06-29] MEDS ORDERED: ePHEDrine SULFATE 50 MG/1 ML INJ ONE (08:56)
[2021-06-29] MEDS ORDERED: propofoL 200 MG/20 ML VIAL IV ONE ×2 (09:21→09:50)
[2021-06-29] MEDS ORDERED: LACTATED RINGERS 1,000 ML ONE (09:33)
[2021-06-29] MEDS ORDERED: SCOPOLAMINE TRANSDERMAL PATCH 72 HR TD SCH (10:00)
[2021-06-29] MEDS ORDERED: SUGAMMADEX SODIUM 200 MG/2 ML VIAL IV ONE (10:13)
[2021-06-29] MEDS ORDERED: MORPHINE 2 MG/1 ML INJ IV PRN (10:35)
[2021-06-29] MEDS ORDERED: HYDROcodone/Acetaminophen 7.5-325MG-15ML ORAL LIQD PO PRN (10:35)
[2021-06-29] MEDS ORDERED: METOCLOPRAMIDE 10 MG/2 ML INJ IV PRN (10:35)
[2021-06-29] MEDS ORDERED: HYDROmorphone 1 MG/1 ML INJ IV PRN ×3 (10:35→11:10)
[2021-06-29] MEDS ORDERED: hydrALAZINE 20 MG/1 ML INJ IV PRN (10:35)
[2021-06-29] MEDS ORDERED: LACTATED RINGERS 1,000 ML IV SCH (10:45)
--- NOTE | 2021-06-29 10:46 | Operative Report ---
Operative Report Operative Report: DATE OF PROCEDURE: 06/29/2021 SURGEON: Rachelle Land M.D. MANAGER SIGN: Jax Caballero CSA MD PREOPERATIVE DIAGNOSIS: Morbid obesity. POSTOPERATIVE DIAGNOSES: Morbid obesity PROCEDURES PERFORMED: 1. Laparoscopic gastric bypass. 2. EGD. ANESTHESIA: General endotracheal tube intubation. TAP block SPECIMENS: None. ESTIMATED BLOOD LOSS: Less than 20 mL. FINDINGS: Normal anatomy. COMPLICATIONS: None. INDICATION: Ms. Moura is a 55-year-old female with history of morbid obesity, koffi and htn who is here for bariatric surgery for weight loss. She signed informed consent and expressed understanding of risks and benefits. DESCRIPTION OF PROCEDURE: Patient was brought to the OR suite, laid in supine position. Bilateral lower extremity SCDs were placed. General anesthesia was induced via successful endotracheal tube intubation. Patient's abdomen was prepped and draped in sterile fashion. A veress needle was used to insuflate the abdomen to a pressure of 15mmHg in the left subcostal region. Using Optiview technique, a 5- mm trocar was placed into the abdominal cavity under direct vision just superior and to the left of the umbilicus. There was noted to be no gross injury to any intraabdominal structures. 12 mm in the right mid abdomen mid clavicular line and three 5-mm trocars in the right upper quadrant, epigastric areas were placed under direct visualization. At this time, the ligament of Treitz identified and followed down approximately 50 cm and the jejunum was transected. The distal segment of jejunum was then traced for approximately 100 cm and a stable [id number] jejunojejunostomy was performed. The common enterotomy was closed with 2 firings of the endoscopic stapler. The mesenteric defect was closed with running nonabsorbable V-Loc suture. This anastomosis was found to be patent without kink, obstruction or bleeding. At this time, the patient was placed in steep reverse Trendelenburg position. A liver retractor was placed through the epigastric port to elevate the left lateral lobe of the liver. A small gastric pouch was formed. The Eleanor limb was then brought in an antegastric antecolic fashion and secured with 2 stay sutures to the gastric pouch. After this, the enterotomies were made with Harmonic scalpel, and a [id number] stapled gastrojejunostomy was performed with a mechanical stapler. After this, a 2-layer running closure using absorbable V-lock suture were done, the first being mucosal approximation prior to completion of the first layer. Then I passed and an EGD scope beyond the anastomosis to act as a stent. The first layer was completed, the second was then performed. After this, the EGD was retracted slightly. A bowel clamp was placed in a proximal Eleanor limb. The anastomosis was submerged under saline. Via intraluminal EGD insufflation, there was noted be no bubbles in the saline indicating an airtight anastomosis. There was noted to be no obstruction or bleeding intraluminally in the pouch or the anastomosis. At this time, the scope was removed. The saline was aspirated. Tiseel was placed over the anastomosis. A tap block was performed with a total of 60 cc of 0.25% Marcaine along bilateral mid axillary line. All trocars were removed under direct visualization and the abdomen was then desufflated. The 12mm trocar site was closed using POD and a Berry Max device for fear that after surgery it become incarcerated. The skin incisions were closed with 4-0 Monocryl followed by Dermabond dressings. Patient was awoken and taken to recovery in stable condition. All counts were correct.
[2021-06-29] MEDS: KETOROLAC 30 MG/1 ML INJ IV SCH ×2 (11:16→17:32)
[2021-06-29] MEDS: PANTOPRAZOLE 40 MG INJ IV SCH (11:37)
[2021-06-29] MEDS ORDERED: ALBUMIN HUMAN 5% (25 GM/500 ML) INJ IV NR (13:00)
[2021-06-29] MEDS: ACETAMINOPHEN IV 1,000 MG/100 ML BOTTLE IV SCH ×2 (13:35→21:30)
[2021-06-29] MEDS: metroNIDAZOLE/NS 500 MG/100 ML 500 MG/100 ML BAG IV SCH (16:08)
[2021-06-29] MEDS ORDERED: PUMP NS SCH (22:00)
[2021-06-29] MEDS ORDERED: AZELASTINE HCL 137 MCG/0.137 ML NS SCH (22:00)
[2021-06-30] MEDS: SIMETHICONE 80 MG CHEW TAB PO PRN ×2 (00:57→06:30)
[2021-06-30] MEDS: metroNIDAZOLE/NS 500 MG/100 ML 500 MG/100 ML BAG IV SCH (00:58)
[2021-06-30] MEDS: KETOROLAC 30 MG/1 ML INJ IV SCH ×3 (00:59→12:31)
[2021-06-30] MEDS: ACETAMINOPHEN IV 1,000 MG/100 ML BOTTLE IV SCH ×2 (04:24→08:19)
[2021-06-30] MEDS: PANTOPRAZOLE 40 MG INJ IV SCH ×2 (08:20→14:15)
[2021-06-30] MEDS: LACTATED RINGERS 1,000 ML IV SCH (08:23)
[2021-06-30 09:37] LABS: Alanine Aminotransferase 28 units/L (7-56); Albumin 3.9 g/dL (3.9-5); BUN/Creatinine Ratio 13; Blood Urea Nitrogen 10 mg/dL (7-17); Calcium 9.3 mg/dL (8.4-10.2); Hemolysis Index 4
[2021-06-30 09:47] LABS: Basophils % (Auto) 0.1 % (0.0-1.8); Hematocrit 34.3 % (30.3-42.9); Hemoglobin 11.3 gm/dl (10.1-14.3); Lymphocytes % (Auto) 16.7 % (13.4-35.0); Mean Corpuscular HGB Conc 33 % (30-34); Mean Corpuscular Volume 90 fl (79-97); Monocytes # (Auto) 1.1 K/mm3 (0.0-0.8); Monocytes % (Auto) 9.4 % (0.0-7.3); Platelet Count 314 K/mm3 (140-440); Red Blood Count 3.83 M/mm3 (3.65-5.03); Red Cell Distribution Width 16.4 % (13.2-15.2)
[2021-06-30] MEDS ORDERED: ENOXAPARIN 40 MG/0.4 ML INJ SUB-Q SCH (10:00)
[2021-06-30] MEDS ORDERED: amLODIPine 10 MG TAB PO SCH (10:00)
[2021-06-30] MEDS ORDERED: SERTRALINE 100 MG TAB PO SCH (10:00)
[2021-06-30 12:09] VITALS: BP 128/77
--- NOTE | 2021-06-30 12:46 | Post Anesthesia Evaluation ---
- Post Anesthesia Evaluation Patient Participated: Yes Airway Patent: Yes Stable Respiratory Function: Yes Nausea/Vomiting: No Temp > 96.8F: Yes Pain Manageable: Yes Adequeate Hydration: Yes Anesthesia Complications: No Block Receding Appropriately: Not Applicable Patient on Ventilator: No
--- NOTE | 2021-06-30 12:55 | Discharge Summary ---
Providers - Providers Date of Admission: 06/29/21 06:05 Date of discharge: 06/30/21 Attending physician: EDD CABRERA MD 06/29/21 10:36 Physical Therapy Evaluation and Treat [CONS] Routine Comment: Reason For Exam: post op bariatric surgery Primary care physician: IAN RUFFIN NP Hospitalization Reason for admission: Status post laparoscopic gastric bypass Condition: Good Procedures: Laparoscopic gastric bypass Hospital course: Patient had an uneventful course status post laparoscopic gastric bypass. Patient remained afebrile and stable. Patient was tolerating p.o. liquids well, with adequate pain control, and ambulating without difficulty. Patient was helene wing no clinical signs of leak or bleeding upon discharge. Patient to follow-up in the office within 2 weeks. Disposition: 01 HOME / SELF CARE / HOMELESS Final Discharge Diagnosis (Prints w/discharge instructions): Morbid obesity, hypertension, sleep apnea Core Measure Documentation - Palliative Care Palliative Care/ Comfort Measures: Not Applicable - Core Measures Any of the following diagnoses?: none Exam - Constitutional Vitals: Temp Pulse Resp BP Pulse Ox 98.5 F 86 16 128/77 97 06/30/21 11:22 06/30/21 12:32 06/30/21 11:22 06/30/21 12:32 06/30/21 11:22 General appearance: Present: no acute distress, obese - Respiratory Respiratory effort: normal - Abdominal General gastrointestinal: Present: other (Incisions clean dry and intact, appropriately tender to palpation) Plan Activity: advance as tolerated Diet: clear liquids Wound: open to air, keep clean and dry Follow up with: IAN RUFFIN NP [Primary Care Provider] - 7 Days
== END 2021-06-30 16:28 | disposition home or self-care (01) | DRG 621 ==
LOC: 3A 06:05 → 3B-SURG 15:29
PROVIDERS: ADMIT Surgery; ATTEND Surgery
PROC: 0D1647A Bypass Stomach to Jejunum with Autologous Tissue Substitute, Percutaneous Endoscopic Approach (ICD-10-PCS; principal; 2021-06-29)
DX: E66.01 Morbid (severe) obesity due to excess calories (principal); Z20.822 Contact with and (suspected) exposure to COVID-19; I10 Essential (primary) hypertension; F41.9 Anxiety disorder, unspecified; Z68.42 Body mass index [BMI] 45.0-49.9, adult; Z71.3 Dietary counseling and surveillance; Z88.1 Allergy status to other antibiotic agents; Z91.040 Latex allergy status; Z82.5 Family history of asthma and other chronic lower respiratory diseases; Z87.440 Personal history of urinary (tract) infections; Z87.442 Personal history of urinary calculi
CPT/HCPCS: 36415; 80053; 82962; 84703; 85025; 85027; 94760; G0378; A4217; C9113; C9250; J0131; J1100; J1170; J1650; J1885; J1956; J2250; J2405; J2704; J3475; J3490; J7120; P9045; U0003

== ENCOUNTER 2021-07-30 09:22 | Outpatient (CLI) | payer MEDICAID ==
[2021-07-30 09:50] LABS: Basophils # (Auto) 0.1 K/mm3 (0.0-0.1); Basophils % (Auto) 1.6 % (0.0-1.8); Eosinophils # (Auto) 0.3 K/mm3 (0.0-0.4); Eosinophils % (Auto) 3.7 % (0.0-4.3); Hematocrit 38.1 % (30.3-42.9); Hemoglobin 12.6 gm/dl (10.1-14.3); Lymphocytes # (Auto) 2.1 K/mm3 (1.2-5.4); Mean Corpuscular HGB Conc 33 % (30-34); Mean Corpuscular Volume 91 fl (79-97); Monocytes # (Auto) 0.7 K/mm3 (0.0-0.8); Monocytes % (Auto) 8.4 % (0.0-7.3); Platelet Count 276 K/mm3 (140-440); Red Cell Distribution Width 16.8 % (13.2-15.2)
[2021-07-30 10:04] LABS: % Iron Saturation 15.68 %; Alanine Aminotransferase 22 units/L (7-56); Albumin 3.9 g/dL (3.9-5); BUN/Creatinine Ratio 15; Blood Urea Nitrogen 12 mg/dL (7-17); Calcium 9.6 mg/dL (8.4-10.2); Chol/HDL Ratio 3.26 %; HDL Cholesterol 52 mg/dL (40-59); Hemolysis Index 5; Iron 45 ug/dL (37-170); LDL Cholesterol,Direct 104 mg/dL (50-130); Total Iron Binding Capacity 287 mcg/dL (250-450)
== END 2021-07-30 09:23 | disposition home or self-care (01) ==
LOC: LAB 09:22
PROVIDERS: ATTEND Surgery
DX: E11.9 Type 2 diabetes mellitus without complications (principal); E66.01 Morbid (severe) obesity due to excess calories; K30 Functional dyspepsia; K90.9 Intestinal malabsorption, unspecified; E55.9 Vitamin D deficiency, unspecified; Z98.84 Bariatric surgery status
CPT/HCPCS: 36415; 80053; 80061; 82306; 82607; 82728; 83036; 83550; 83970; 84425; 84443; 85025

== ENCOUNTER 2021-12-30 11:08 | Outpatient (CLI) | payer MEDICAID ==
[2021-12-30 12:09] LABS: Basophils # (Auto) 0.1 K/mm3 (0.0-0.1); Basophils % (Auto) 0.6 % (0.0-1.8); Eosinophils # (Auto) 0.2 K/mm3 (0.0-0.4); Eosinophils % (Auto) 1.6 % (0.0-4.3); Hematocrit 38.7 % (30.3-42.9); Hemoglobin 12.4 gm/dl (10.1-14.3); Lymphocytes # (Auto) 2.7 K/mm3 (1.2-5.4); Mean Corpuscular HGB Conc 32 % (30-34); Mean Corpuscular Volume 90 fl (79-97); Monocytes # (Auto) 0.7 K/mm3 (0.0-0.8); Monocytes % (Auto) 5.7 % (0.0-7.3); Platelet Count 299 K/mm3 (140-440); Red Blood Count 4.27 M/mm3 (3.65-5.03); Red Cell Distribution Width 15.1 % (13.2-15.2)
[2021-12-30 12:40] LABS: % Iron Saturation 10.44 %; Alanine Aminotransferase 18 units/L (7-56); Albumin 4.4 g/dL (3.9-5); BUN/Creatinine Ratio 16; Blood Urea Nitrogen 13 mg/dL (7-17); Calcium 9.1 mg/dL (8.4-10.2); Chol/HDL Ratio 3.15 %; HDL Cholesterol 64 mg/dL (40-59); Hemolysis Index 1; Iron 38 ug/dL (37-170); LDL Cholesterol,Direct 120 mg/dL (50-130); Total Iron Binding Capacity 364 mcg/dL (250-450)
== END 2021-12-30 11:09 | disposition home or self-care (01) ==
LOC: LAB 11:08
PROVIDERS: ATTEND Surgery
DX: Z13.21 Encounter for screening for nutritional disorder (principal); Z13.29 Encounter for screening for other suspected endocrine disorder; K90.9 Intestinal malabsorption, unspecified; E55.9 Vitamin D deficiency, unspecified; E11.9 Type 2 diabetes mellitus without complications; E66.01 Morbid (severe) obesity due to excess calories; K30 Functional dyspepsia; Z98.84 Bariatric surgery status
CPT/HCPCS: 36415; 80053; 80061; 82306; 82607; 82728; 83036; 83550; 83970; 84425; 84443; 85025